=== PATIENT | female | born 1970 ===

== ENCOUNTER 2017-04-27 08:55 | Day surgery (SDC) | payer OTHER ==
[2017-04-27 09:19] VITALS: BMI 35.6
[2017-04-27] MEDS ORDERED: Propofol 10 mg/ml Inj (20 ML) ONE (09:47)
[2017-04-27] MEDS ORDERED: Lactated Ringer's 500 ML IV SCH (10:00)
--- NOTE | 2017-04-27 10:07 | CP.SDSHP ---
Same Day Surgery H & P - History Proposed Procedure: EGD Pre-Op Diagnosis: SEE NOTES - Previous Medical/Surgical History Neuro: Other Misc: Other Pain: 4.Moderate Pain - Allergies Allergies: Allergies No Known Allergies Allergy (Verified 04/27/17 09:18) - Physical Exam General Appearance: N Vital Signs: Vital Signs 04/27/17 09:46 Temperature 97.3 F L Pulse Rate 79 Respiratory 17 Rate Blood Pressure 122/50 L O2 Sat by Pulse 99 Oximetry Mental Status: Alert & Oriented x3 Neuro: WNL Heart: WNL Lungs: WNL GI: Other - {Optional Preform as Required} Breast: WNL Abdomen: Other Rectal: Other Integument: WNL : WNL Ortho: Other ENT: WNL - Impression Pt. Evaluated Today:Candidate for Anesthesia & Procedure: Yes - Date & Time Time: 10:07 Short Stay Discharge - Short Stay Discharge Admitting Diagnosis/Reason for Visit: DYSPEPSIA Disposition: HOME/ ROUTINE
[2017-04-27] MEDS ORDERED: Belladonna-Phenobarbital PO STA (10:09)
[2017-04-27 10:47] VITALS: TEMP 97.8; O2SAT 100
[2017-04-27 11:42] VITALS: BP 116/67; PULSE 63; RESP 16
== END 2017-04-27 11:33 | disposition home or self-care (01) ==
LOC: C.ENDO 08:55
PROVIDERS: ATTEND Specialist
DX: K21.0 Gastro-esophageal reflux disease with esophagitis (principal); K25.9 Gastric ulcer, unspecified as acute or chronic, without hemorrhage or perforation; K29.50 Unspecified chronic gastritis without bleeding; B96.81 Helicobacter pylori [H. pylori] as the cause of diseases classified elsewhere
CPT/HCPCS: 43239; 84703; 88305; J2704; J7120